=== PATIENT | male | born 1995 | race African-American/Black ===

== ENCOUNTER → 2022-08-29 | Day surgery (SDC) | payer SELFPAY ==
[2022-08-25 11:33] VITALS: BMI 24.4
[~2022-08-29] MED LIST: CEFAZOLIN 1 GM VIAL ONE; Dexmedetomidine 200 MCG/2 ML VIAL ONE; FENTANYL 50 MCG/ML 1 ML VIAL ONE; Gentamicin 80 MG/2 ML VIAL ONE; Ketamine 50 MG/ML (10ML VIAL) ONE; Lidocaine 1% (PF) 30 ML VIAL ONE; Midazolam HCl 2 mg/2 ml Vial ONE; Propofol 500 MG/50 ML VIAL ONE; Vancomycin (BATCH) 1.5 GRAM/300 ML BAG ONE; Vancomycin 1 GM VIAL ONE; fentaNYL PF 100 MCG/2 ML SYRINGE ONE
== END | disposition home or self-care (01) ==
LOC: SDC 05:39
PROVIDERS: ATTEND Internal Medicine Cardiovascular Disease
PROC: 0JH609Z Insertion of Cardiac Resynchronization Defibrillator Pulse Generator into Chest Subcutaneous Tissue and Fascia, Open Approach (ICD-10-PCS; principal; 2022-08-29)
PROC: 0JPT0PZ Removal of Cardiac Rhythm Related Device from Trunk Subcutaneous Tissue and Fascia, Open Approach (ICD-10-PCS; 2022-08-29)
DX: Z45.02 Encounter for adjustment and management of automatic implantable cardiac defibrillator (principal); I50.22 Chronic systolic (congestive) heart failure; I42.8 Other cardiomyopathies; I47.20 Ventricular tachycardia, unspecified; Z79.899 Other long term (current) drug therapy
CPT/HCPCS: 33263; 93005; 99152; 99153; J0690; J1580; J2001; J2250; J2704; J3010; J3370